=== PATIENT | female | born 1950 | race Caucasian/White ===

== ENCOUNTER → 2020-07-16 | Outpatient (CLI) | payer MEDICARE, OTHER ==
--- NOTE | 2020-07-16 14:59 | Diagnostic Imaging Report ---
INDICATION: Neck pain. TIME OF EXAM: 1:08 PM AP, lateral and odontoid views were obtained. Curvature and alignment of the cervical spine is normal. There is degenerative disc disease C6-C7 level with disc space narrowing and marginal spurring. No fractures are seen. Odontoid appears intact. IMPRESSION: Lower cervical spondylosis. No acute bony abnormality is detected. Dictated by: Dictated on workstation # [id number]
== END ==
LOC: RAD FS 12:56
PROVIDERS: ATTEND Nurse Practitioner Family
DX: M47.812 Spondylosis without myelopathy or radiculopathy, cervical region (principal)
CPT/HCPCS: 72040

== ENCOUNTER → 2020-10-03 | Outpatient (CLI) | payer MEDICARE, OTHER ==
--- NOTE | 2020-10-03 14:59 | Diagnostic Imaging Report ---
INDICATION: Pain and swelling of the elbow COMPARISON: None. FINDINGS: Three views of the right elbow show no fractures, dislocations, or other acute bony abnormalities identified. Joint spaces are well maintained throughout. The soft tissues appear unremarkable. No radiopaque foreign bodies are identified. IMPRESSION: No acute fractures or dislocations of the right elbow. Dictated by: Dictated on workstation # [id number]
--- NOTE | 2020-10-03 15:00 | Diagnostic Imaging Report ---
INDICATION: Pain and swelling. COMPARISON: None. FINDINGS: Two views of the right forearm were obtained and show no fractures, dislocations, or other acute bony abnormalities. Joint spaces are well maintained throughout. The soft tissues appear unremarkable. No radiopaque foreign bodies are identified. IMPRESSION: Unremarkable radiographic exam of the right forearm. Dictated by: Dictated on workstation # [id number]
--- NOTE | 2020-10-03 15:09 | Diagnostic Imaging Report ---
INDICATION: Pain and swelling of the right shoulder. COMPARISON: None. FINDINGS: Three views of the right shoulder were obtained. There is no fracture, dislocation, or other acute bony abnormality identified. The soft tissues appear unremarkable. No radiopaque foreign bodies identified. The visualized portions of the right lung are clear. IMPRESSION: No acute fractures or dislocations of the right shoulder. Dictated by: Dictated on workstation # [id number]
== END ==
LOC: RAD FS 14:20
PROVIDERS: ATTEND Family Medicine
DX: M25.411 Effusion, right shoulder (principal); M25.421 Effusion, right elbow; M79.631 Pain in right forearm; M79.89 Other specified soft tissue disorders
CPT/HCPCS: 73030; 73080; 73090